=== PATIENT | male | born 1985 | race Caucasian/White ===

== ENCOUNTER 2019-02-19 07:49 | Inpatient (IN) | payer BC ==
[~2019-02-19] VITALS: Ht 193 cm; Wt 97.7 kg
[~2019-02-19 07:49] MED LIST: ALBU2.5V8 IH; AMOX1TAB58 PO; DEXT5TAB27 PO; HYDR1TAB13 PO; LAMO25TA5 PO; LEXAPRO5 MG PO; MENT3.2L MM; PRED20TA PO; PROP60CA8 PO; RABE20TA18 PO; TRAZ-120 PO
[2019-02-19 08:47] VITALS: BP 133/88
[2019-02-19] MEDS ORDERED: ESCITALOPRAM OX20 MG PO (08:48)
[2019-02-19] MEDS ORDERED: ONDA4TAB12 PO (08:48)
[2019-02-19] MEDS ORDERED: LAMO200T2 PO (08:48)
[2019-02-19] MEDS ORDERED: PANT40TA5 PO (08:48)
[2019-02-19] MEDS ORDERED: PROP40TA PO (08:48)
[2019-02-19] MEDS ORDERED: TRAZ-120 PO (08:48)
[2019-02-19] MEDS ORDERED: MULT1TAB52 PO (08:49)
[2019-02-19] MEDS ORDERED: cloNIDine HCL 0.1 MG TABLET PO PRN (09:30)
[2019-02-19] MEDS ORDERED: ONDANSETRON PF 4 MG/2 ML VIAL. IV PRN (09:30)
[2019-02-19] MEDS ORDERED: diphenhydrAMINE 50 MG/ML VIAL IVP PRN (09:30)
[2019-02-19] MEDS ORDERED: HALOPERIDOL LACT 5 MG/ML VIAL. IM PRN (09:30)
[2019-02-19] MEDS ORDERED: IV NORMAL SALINE 1,000ML 1,000 ML IV SCH (09:30)
[2019-02-19 10:13] LABS: ALBUMIN 4.2 g/dL (3.4-5.0); ALBUMIN/GLOBULIN RATIO 1.1 (1.0-1.7); CALCIUM 8.8 mg/dL (8.5-10.1); CREATININE 1.1 mg/dL (0.7-1.3); DIRECT BILIRUBIN 0.4 mg/dL (0.0-0.2); GFR 76.6; TOTAL BILIRUBIN 1.2 mg/dL (0.2-1.0); TOTAL PROTEIN 8.1 g/dL (6.4-8.2)
[2019-02-19] MEDS: MVI, ADULT NO.4 WITH VIT K 10 ML, THIAMINE INJ 100 MG, FOLIC ACID INJ 1 MG in IV NORMAL... IV SCH ×4 (10:13)
[2019-02-19 10:14] LABS: BASO % 1 % (0-3); EOS # 0.1 x10^3/uL (0.0-0.7); EOS % 2 % (0-3); HEMATOCRIT 44.5 % (39.0-53.0); HEMOGLOBIN 15.4 g/dL (13.0-17.5); LYMPH % 19 % (24-48); MEAN CORPUSCULAR HEMOGLOBIN 32 pg (25-35); MEAN CORPUSCULAR HGB CONC 35 g/dL (31-37); MEAN CORPUSCULAR VOLUME 91 fL (79-100); MONO # 0.8 x10^3/uL (0.0-1.1); MONO % 14 % (0-9); NEUT # 3.5 x10^3uL (1.8-7.7); NEUT % 65 % (31-73); PLATELET COUNT 89 x10^3/uL (140-400); RED BLOOD COUNT 4.87 x10^6/uL (4.30-5.70); RED CELL DISTRIBUTION WIDTH 14.2 % (11.5-14.5); WHITE BLOOD COUNT 5.4 x10^3/uL (4.0-11.0)
[2019-02-19] MEDS: THIAMINE IM 200 MG/2 ML VIAL. IM SCH (10:16)
[2019-02-19 11:16] LABS: PLT ESTIMATE DECREASED (ADEQUATE)
[2019-02-19] MEDS: POTASSIUM CHLORIDE 10MEQ 100 ML IV SCH ×4 (11:29→14:27)
[2019-02-19 15:20] VITALS: BP 121/77
--- NOTE | 2019-02-19 16:18 | HP ---
ADMIT DATE: 02/19/2019 HISTORY OF PRESENT ILLNESS: The patient is a 33-year-old male patient, who was admitted directly from his primary care physician's office on account of abnormal lab work and also presentation as he presented yesterday with recurrent for 3 days constant vomiting, abdominal pain. He was investigated in his primary care physician's office and was found to have elevated serum lipase and therefore he was admitted directly to [facility] for further evaluation and treatment. We did repeat his lab work on arrival and his lipase actually higher at 2,288. PAST MEDICAL HISTORY: Significant for scoliosis, recurrent patellar dislocation, familial essential tremors as well as ADHD. PAST SURGICAL HISTORY: Significant for arthroscopic surgery of both knees for recurrent dislocation of the patella and wisdom teeth extraction. ALLERGIES: He has no known drug allergies. MEDICATIONS: He is currently on following medications: He is on propranolol 40 mg twice a day, 200 mg daily, escitalopram oxalate 30 mg once a day, trazodone 50-100 mg at bedtime, ondansetron 8 mg every 8 hours, Protonix 40 mg once a day, and multivitamin 1 tablet once a day. He is also on Adderall for his ADHD. FAMILY HISTORY: He is adopted and lives with his adopted parents. He knows his biological parents. His biological father is alive at age of 53 and mother is alive at age of 53. Does not know anything about their medical problems. SOCIAL HISTORY: He is single, never smoked. Drinks a liter of rum and vodka almost daily. 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 REVIEW OF SYSTEMS: The patient denied any blurring of vision, cataract, glaucoma or macular degeneration. Denied any earache, tinnitus or sensorineural deafness. Denied any nosebleeds, stuffy nose. Denied any sore throat, sore tongue, toothache, hoarseness of voice or difficulty swallowing. Did complain of nausea and vomiting. Denied any diarrhea or constipation. Denied any hematemesis, melena or hematochezia. Denied any dysuria, frequency or hematuria. He denied any chest pain, shortness of breath, orthopnea or paroxysmal nocturnal dyspnea. Denied any cough, phlegm or hemoptysis. Denied any chills, rigors or fever. PHYSICAL EXAMINATION: GENERAL: When I saw him, he was resting slightly propped up in bed, in no apparent respiratory distress. No pallor, jaundice, cyanosis, or thyromegaly. No jugular venous distension. No limb edema. VITAL SIGNS: His heart rate was 85, blood pressure was 133/88, temperature was 97.9, respiratory rate 20, and oxygen saturation was 98%. HEAD, EYES, EARS, NOSE AND THROAT: Showed normocephalic, atraumatic. NECK: Supple. HEART: Showed normal first and second heart sounds with no gallop, rub or murmur. CHEST: Clear to auscultation. No crepitation or rhonchi. ABDOMEN: Distended, soft. Tenderness mostly in the epigastric and right upper quadrant. There is no guarding or rigidity. No organomegaly. All hernial orifices intact. Bowel sounds normal. NEUROLOGIC: He was awake, alert, responding appropriately. Rectal nerves intact. EXTREMITIES: He moves extremities without difficulty. He ambulates without assistance or assistive devices. LABORATORY DATA: Showed a serum sodium 140, potassium 3, chloride 100, bicarbonate 28, anion gap of 12, BUN 9, creatinine 1.1, estimated GFR was 77 mL per minute. His glucose was 88, calcium was 8.8. Total bilirubin was 1.2, AST, ALT elevated. Alkaline phosphatase was normal. His total protein was 8.1, albumin was 4.2. His amylase 143 and lipase was 2,288. His white cell count was 5400, hemoglobin 15.4, hematocrit 44, MCV 91, and platelet count of 89,000 with normal manual differential. ASSESSMENT AND PLAN: This is a 33-year-old male patient, who was seen originally at his primary care physician yesterday with recurrent episode of nausea, vomiting that has been going on for 3 days prior to his clinic visit. His lab work there showed that he has acute pancreatitis and therefore he was admitted directly to our facility where repeat lab work show that he has acute pancreatitis and in fact his serum lipase has quadruple, has also marked thrombocytopenia. His platelet count is down to 89,000. His chemistry showed also he has probably acute alcoholic hepatitis and hypokalemia. We will start him on alcohol withdrawal protocol. We will replenish his potassium. He is on fentanyl 50 mcg IV every 3 hours as needed as well as ondansetron for nausea and vomiting. He was started banana bag. We will start him also on alcohol withdrawal protocol and we will start him on 1000 mL of normal saline with 40 mEq of potassium chloride. He will be n.p.o. from midnight tonight and we will arrange for him to have abdominal ultrasound to evaluate his gallbladder and liver tomorrow. SHANNEN KOVACS MD DR: DIPAK/carlos enrique JOB#: [id number] / [id number]
[2019-02-19 19:35] VITALS: BP 134/117
[2019-02-19] MEDS: POTASSIUM CL 40MEQ IN 0.9%NACL 1,000 ML IV SCH (20:08)
[2019-02-19 20:52] LABS: BACTERIA,URINE FEW /HPF (0-FEW); BILIRUBIN,URINE NEG (NEG); CLARITY,URINE CLOUDY; COLOR,URINE AMBER; GLUCOSE,URINE NEG (NEG); NITRITE,URINE NEG (NEG); SQUAMOUS EPITHELIAL CELL,UR OCC /LPF; UROBILINOGEN,URINE 4 mg/dL (0.2 mg/dL)
[2019-02-19 20:54] LABS: BARBITURATES NEG (NEG); BENZODIAZEPINES NEG (NEG); CANNABINOIDS NEG (NEG); COCAINE NEG (NEG); METHADONE NEG (NEG); OPIATES NEG (NEG); PHENCYCLIDINE NEG (NEG)
[2019-02-19 20:55] LABS: AMPHETAMINE/METHAMPHETAMINE POS (NEG)
[2019-02-19 23:27] VITALS: BP 131/84
[2019-02-20] MEDS: POTASSIUM CL 40MEQ IN 0.9%NACL 1,000 ML IV SCH ×3 (01:45→21:45)
[2019-02-20 07:51] LABS: ALBUMIN 3.3 g/dL (3.4-5.0); CALCIUM 7.9 mg/dL (8.5-10.1); CREATININE 0.9 mg/dL (0.7-1.3); GFR 96.6; POTASSIUM 3.3 mmol/L (3.5-5.1); TOTAL BILIRUBIN 1.5 mg/dL (0.2-1.0); TOTAL PROTEIN 6.6 g/dL (6.4-8.2)
[2019-02-20 08:07] LABS: HEMATOCRIT 38.3 % (39.0-53.0); HEMOGLOBIN 13.1 g/dL (13.0-17.5); RED BLOOD COUNT 4.13 x10^6/uL (4.30-5.70); RED CELL DISTRIBUTION WIDTH 14.2 % (11.5-14.5); WHITE BLOOD COUNT 3.7 x10^3/uL (4.0-11.0)
[2019-02-20] MEDS: THIAMINE IM 200 MG/2 ML VIAL. IM SCH (08:19)
[2019-02-20] MEDS: MVI, ADULT NO.4 WITH VIT K 10 ML, THIAMINE INJ 100 MG, FOLIC ACID INJ 1 MG in IV NORMAL... IV SCH ×4 (08:38)
[2019-02-20] MEDS: POTASSIUM CHLORIDE 20 MEQ TABLET.ER. PO SCH ×2 (09:00→20:44)
[2019-02-20 11:40] VITALS: BP 129/83
[2019-02-20] MEDS ORDERED: IOHEXOL 300 MG/ML 75 ML VIAL. IV ONE (15:00)
[2019-02-20] MEDS ORDERED: MAGNESIUM SULFATE 2GM 50 ML IV ONE (15:00)
[2019-02-20 15:17] VITALS: BP 147/93
--- NOTE | 2019-02-20 16:13 | RAD ---
CT ABD PELV W/ IV CONTRST ONLY Indication: ACUTE PANCREATITUS, ABNORMAL LFT'S, ABDOMINAL PAIN WITH VOMITING. 75MLS OMNI 300 IV CONTRAST Exposure: One or more of the following individualized dose reduction techniques were utilized for this examination: 1. Automated exposure control 2. Adjustment of the mA and/or kV according to patient size 3. Use of iterative reconstruction technique. Technique: Intravenous contrast was given. No oral contrast per request. No prior study for comparison. Mild atelectasis in the lung bases. Liver is diffusely hypodense compatible with fatty infiltration. Liver is mildly enlarged at about 19 cm cephalocaudal. Spleen not enlarged. No evidence of peripancreatic inflammatory type changes, pancreas appears unremarkable. No adrenal mass. Kidneys appear unremarkable. No calcified gallstone. Aorta is nonaneurysmal. No significant lymph node enlargement. No evidence of significant small bowel distention. The appendix appears normal. No evidence of acute colitis. No evidence of ascites. No evidence of pneumoperitoneum. No evidence of pelvic mass. Urinary bladder demonstrates no significant wall thickening. Left convexity lumbar scoliosis. There is degenerative spondylosis. No aggressive bone destruction. IMPRESSION: 1. Hepatic steatosis with mild hepatomegaly. 2. No CT evidence of peripancreatic fluid or inflammatory change. Electronically signed by: Venu Peacock MD (02/20/2019 4:10 PM) [id number]
[2019-02-20 19:30] VITALS: BP 113/72
--- NOTE | 2019-02-20 20:59 | PN ---
DATE: 02/20/2019 SUBJECTIVE: The patient is resting slightly propped up in bed, in no apparent distress. He is awake and alert. Denied any nausea or vomiting. Denied any abdominal pain. The nursing staff stated that he had not show any evidence of delirium or any alcohol withdrawal symptoms. His liver enzymes are trending down as well as his serum lipase is down to 2198. However, his serum triglycerides are normal. PHYSICAL EXAMINATION: GENERAL: When I examined him this afternoon, he looked well and was clearly in no apparent respiratory distress. No pallor, jaundice, cyanosis, or thyromegaly. No jugular venous distension. No lower limb edema. VITAL SIGNS: His heart rate was 78, blood pressure was 131/84, temperature 98.2, respiratory rate was 18 and oxygen saturation was 99%. HEAD, EYES, EARS, NOSE AND THROAT: Normocephalic, atraumatic. NECK: Supple. HEART: Showed normal first and second sounds. No gallop, rub or murmur. CHEST: Clear to auscultation. No crepitation or rhonchi. ABDOMEN: Distended, soft with mild tenderness in the epigastric area. No guarding or rigidity. No organomegaly. All hernial orifices intact. Bowel sounds normal. NEUROLOGIC: He was awake, alert, responding appropriately. All cranial nerves intact. He moves extremities without difficulty. His intake over the last 24 hours was 5231 and output was 800. LABORATORY DATA: This morning showed a serum sodium 140, potassium 3.3, bicarbonate 27, anion gap of 10, BUN 9, creatinine 0.9, estimated GFR was 96 mL per minute. His glucose was 75, calcium was 7.9. Total bilirubin 1.5. AST and ALT are elevated. Alkaline phosphatase normal. Total protein was 6.6, albumin 3.3. Serum triglycerides were 71, total cholesterol 170, LDL was 108, VLDL was 14, and HDL was 43 and the ratio was 3. Serum lipase this morning was 2196. His urinalysis was essentially unremarkable and toxic screen was positive for amphetamine, methamphetamine as well as ethyl alcohol. ASSESSMENT: 1. Acute alcohol-induced pancreatitis. 2. Acute alcohol hepatitis. 3. Hypokalemia, slightly better. 4. The patient also has thrombocytopenia. 5. Polysubstance abuse including amphetamine, methamphetamine and alcohol. PLAN: To continue with alcohol withdrawal protocol. Continue with the clear liquid diet. I have arranged for him to have a CT scan of the abdomen and pelvis with contrast and if there is no evidence of any gallbladder disease, we will advance diet as tolerated and I will repeat all his labs tomorrow. SHANNEN KOVACS MD DR: DIPAK/carlos enrique JOB#: [id number] / [id number]
[2019-02-20 23:16] VITALS: BP 120/80
[2019-02-21] MEDS: POTASSIUM CL 40MEQ IN 0.9%NACL 1,000 ML IV SCH ×2 (01:41→20:17)
[2019-02-21 06:10] VITALS: BP 148/95
[2019-02-21 07:43] LABS: ALBUMIN 3.2 g/dL (3.4-5.0); CALCIUM 8.2 mg/dL (8.5-10.1); CREATININE 0.8 mg/dL (0.7-1.3); GFR 110.7; MAGNESIUM 2.1 mg/dL (1.8-2.4); POTASSIUM 3.9 mmol/L (3.5-5.1); TOTAL PROTEIN 6.4 g/dL (6.4-8.2)
[2019-02-21] MEDS: POTASSIUM CHLORIDE 20 MEQ TABLET.ER. PO SCH ×2 (08:09→20:17)
[2019-02-21] MEDS: THIAMINE IM 200 MG/2 ML VIAL. IM SCH (08:09)
[2019-02-21] MEDS: MVI, ADULT NO.4 WITH VIT K 10 ML, THIAMINE INJ 100 MG, FOLIC ACID INJ 1 MG in IV NORMAL... IV SCH ×4 (09:10)
[2019-02-21 11:06] VITALS: BP 129/82
[2019-02-21 15:19] VITALS: BP 138/90
[2019-02-21 19:30] VITALS: BP 137/94
--- NOTE | 2019-02-21 21:03 | PN ---
DATE: 02/21/2019 SUBJECTIVE: The patient is resting, slightly propped up in bed, in no apparent distress. Awake, alert. On questioning him, he denied any complaint, in particular denied any nausea, vomiting. Denied any abdominal pain. His lab work in fact showed that his lipase is actually higher today at 2480. His liver enzymes are trending down. His CT scan showed no evidence of any pancreatitis. In fact, the radiologist said that there is no evidence of any peripancreatic inflammatory type changes. Pancreas appears unremarkable. The liver is diffusely hypodense compatible with fatty infiltration, the liver is mildly enlarged at about 19. There are no calcified gallstones, aorta is nonaneurysmal. No significant lymph node enlargement. No evidence of any significant small bowel distention. The appendix appears normal. No evidence of acute colitis, no evidence of ascites or pneumoperitoneum, no evidence of pelvic mass. Urinary bladder demonstrates no significant wall thickening and my plan is to advance his diet. I will discuss this finding with the second facing baster tomorrow and decide on further management accordingly. PHYSICAL EXAMINATION: GENERAL: When I saw him this afternoon, he looked well and was clearly in no apparent respiratory distress. No pallor, jaundice, cyanosis, or thyromegaly. No jugular venous distension. No lower limb edema. VITAL SIGNS: His heart rate was 80, blood pressure was 138/90, temperature was 98.4, respiratory rate was 20, and oxygen saturation was 97%. The rest of clinical examination is unremarkable. His intake over the last 24 hour is 5231, output was 800. LABORATORY DATA: Showed a serum sodium 142, potassium 3.9, chloride 108, bicarbonate 26, anion gap of 8, BUN 7, creatinine 0.8, estimated GFR was 110 mL per minute. His glucose was 88, calcium was 8.2, magnesium was 2.1. Total bilirubin and alkaline phosphatase normal. AST, ALT slightly elevated, but trending down. Total protein was 6.4, albumin 3.2. Serum lipase was 2480. ASSESSMENT: Elevated serum lipase without any clear-cut evidence of pancreatitis, peripancreatic inflammatory changes. The patient is heavy alcohol drinker. He has hepatic steatosis with enlarged liver. PLAN: My plan is to advance his diet as tolerated and discuss the finding with the second facing baster tomorrow. SHANNEN KOVACS MD DR: [place]ka JOB#: [id number] / [id number]
[2019-02-21 23:15] VITALS: BP 146/99
[2019-02-22] MEDS: POTASSIUM CL 40MEQ IN 0.9%NACL 1,000 ML IV SCH ×3 (04:37→20:59)
[2019-02-22 06:04] VITALS: BP 120/79
[2019-02-22] MEDS: THIAMINE IM 200 MG/2 ML VIAL. IM SCH (08:26)
[2019-02-22] MEDS: POTASSIUM CHLORIDE 20 MEQ TABLET.ER. PO SCH ×2 (08:26→20:23)
[2019-02-22] MEDS: MVI, ADULT NO.4 WITH VIT K 10 ML, THIAMINE INJ 100 MG, FOLIC ACID INJ 1 MG in IV NORMAL... IV SCH ×4 (09:00)
[2019-02-22 10:59] VITALS: BP 148/90
[2019-02-22 15:40] VITALS: BP 129/77
[2019-02-22 16:04] LABS: ALBUMIN/GLOBULIN RATIO 1.1 (1.0-1.7); CALCIUM 9.4 mg/dL (8.5-10.1); CREATININE 0.9 mg/dL (0.7-1.3); GFR 96.6; POTASSIUM 4.6 mmol/L (3.5-5.1); TOTAL BILIRUBIN 0.7 mg/dL (0.2-1.0); TOTAL PROTEIN 7.6 g/dL (6.4-8.2)
[2019-02-22 18:48] VITALS: BP 128/83
--- NOTE | 2019-02-23 01:52 | PN ---
DATE: 02/22/2019 SUBJECTIVE: The patient is sitting up comfortably in his bed, in no apparent distress. On questioning him, he denied any complaint, in particular he denied any nausea or vomiting. Denied abdominal pain. He is tolerating his diet without any difficulty; however, his serum lipase is going up and has risen today 3422 from 2480 yesterday. He has no leukocytosis and his CT scan of the abdomen showed that the pancreas is unremarkable with no peripancreatic inflammation. My plan is to observe him again overnight and tomorrow I would consult Dr. Duque and if he recommended the patient can be discharged safely, he will be discharged. OBJECTIVE: GENERAL: When I examined him this afternoon, he looked well and was clearly in no apparent respiratory distress. No pallor, jaundice, cyanosis, or thyromegaly. No jugular venous distention. No limb edema. VITAL SIGNS: His heart rate was 76, blood pressure was 129/77, temperature was 97.7, respiratory rate 20, and oxygen saturation was 96% and the rest of the clinical examination was unremarkable. LABORATORY DATA: His white cell count was 3700, hemoglobin 13, hematocrit 38, MCV 93, and platelet count of 63,000. His chemistry showed a serum sodium 139, potassium 4.6, chloride 105, bicarbonate 24, anion gap of 10, BUN 5, creatinine was 0.9, estimated GFR was 97 mL per minute. His glucose was 91, calcium was 9.4. Total bilirubin and alkaline phosphatase normal. AST, ALT are elevated. Total protein was 7.6, albumin 4 and his lipase was high at 3422. ASSESSMENT: Elevated serum lipase without any clear evidence of pancreatitis or peripancreatic inflammatory changes. The patient is a heavy alcohol drinker. He has hepatic steatosis with enlarged liver. PLAN: My plan is to continue with a regular diet for today and tomorrow morning I would discuss the finding with the certified orthotic fitter and if this is the case of elevated lipase without any underlying pathology, he can be discharged home. SHANNEN KOVACS MD DR: DIPAK/carlos enrique JOB#: [id number] / [id number]
[2019-02-23 05:11] VITALS: BP 121/82
[2019-02-23] MEDS ORDERED: traZODone 50 MG TABLET. PO PRN (06:15)
[2019-02-23 06:34] LABS: ALBUMIN 3.9 g/dL (3.4-5.0); CALCIUM 9.5 mg/dL (8.5-10.1); CREATININE 0.9 mg/dL (0.7-1.3); GFR 96.6; POTASSIUM 4.3 mmol/L (3.5-5.1); TOTAL BILIRUBIN 0.8 mg/dL (0.2-1.0); TOTAL PROTEIN 7.7 g/dL (6.4-8.2)
[2019-02-23] MEDS: MVI, ADULT NO.4 WITH VIT K 10 ML, THIAMINE INJ 100 MG, FOLIC ACID INJ 1 MG in IV NORMAL... IV SCH ×4 (07:29)
[2019-02-23] MEDS ORDERED: PANTOPRAZOLE 40 MG TABLET. PO SCH (07:30)
[2019-02-23] MEDS: POTASSIUM CHLORIDE 20 MEQ TABLET.ER. PO SCH (08:54)
[2019-02-23] MEDS ORDERED: THIAMINE 100 MG TABLET. PO SCH (09:00)
[2019-02-23] MEDS ORDERED: PROPRANOLOL 20 MG TABLET. PO SCH (09:00)
[2019-02-23] MEDS ORDERED: lamoTRIgine 100 MG TABLET. PO SCH (09:00)
[2019-02-23] MEDS ORDERED: CITALOPRAM 20 MG TABLET. PO SCH (09:00)
[2019-02-23 10:36] VITALS: BP 122/79
--- NOTE | 2019-02-23 12:22 | DS ---
DATE OF DISCHARGE: 02/23/2019 HOSPITAL COURSE: The patient is a 33-year-old male patient, who was admitted initially with a direct admission from his primary care physician's office on account of abnormal lab work and also he presented with recurrent bouts of nausea, vomiting, and abdominal pain. In the office, he was found to have elevated lipase; therefore, was admitted to [facility]. We did initially kept him n.p.o., start him on IV fluid, IV pain medication, antiemetic. He was initially started on a clear liquid diet and then advance as tolerated. He has no pain, no nausea, no vomiting; however, his serum lipase continued to rise and we did a CT scan of the abdomen, which showed no evidence of any peripancreatic inflammation or evidence of pancreatitis. I discussed the presentation with Dr. Duque's nurse practitioner, who takes me stated that Dr. Duque recommended the patient can safely be discharged as the patient is asymptomatic. He is tolerating his diet without any problem, the only advice is for him to quit drinking alcohol and I explained that in detail and apparently his parents are working for an outpatient detoxification program. PHYSICAL EXAMINATION: GENERAL: When I saw him this morning, he looked well and was clearly in no apparent respiratory distress. No pallor, jaundice, cyanosis, or thyromegaly. No jugular venous distension. No limb edema. VITAL SIGNS: His heart rate was 80, blood pressure was 122/79, temperature was 97.9, respiratory rate was 20, and oxygen saturation was 96%. HEAD, EYES, EARS, NOSE AND THROAT: Showed he is normocephalic, atraumatic. NECK: Supple. HEART: Showed normal first and second heart sounds. No gallop, rub or murmur. CHEST: Clear to auscultation. No crepitation or rhonchi. ABDOMEN: Distended, soft, nontender. No guarding or rigidity. No organomegaly. All hernial orifices intact. Bowel sounds normal. NEUROLOGIC: He was awake, alert, responding appropriately. All cranial nerves intact. EXTREMITIES: He moves extremities without difficulty, ambulates without assistance or assistive devices. LABORATORY DATA: Showed a white cell count of 3700, hemoglobin 13, hematocrit 38, MCV 93, and platelet count of 63,000. His chemistry showed a serum sodium 139, potassium 4.3, chloride 103, bicarbonate 25, anion gap of 11, BUN 4, creatinine 0.9, estimated GFR was 96 mL per minute. His glucose was 84, calcium was 9.5. Total bilirubin and alkaline phosphatase normal. AST, ALT are elevated, but trending down. Total protein was 7.7, albumin 3.9. Serum lipase was 2578. His CT scan of the abdomen and pelvis showed that the liver is diffusely hypodense compatible with fatty infiltration. The liver is mildly enlarged at about 19 cm cephalocaudal. Spleen is not enlarged. No evidence of peripancreatic inflammatory type changes. Pancreas appears unremarkable. No adrenal mass. Kidney appears unremarkable. There are no calcified gallstones and no significant lymph node enlargement. DISCHARGE MEDICATIONS: He was discharged home to continue on following medications: Escitalopram oxalate 20 mg, takes one-half tablet daily, lamotrigine 200 mg daily, multivitamin 1 tablet once a day, ondansetron 8 mg every 8 hours, Protonix 40 mg daily, propranolol 40 mg twice a day and trazodone 50-100 mg at bedtime for insomnia. FINAL DISCHARGE DIAGNOSES: 1. Acute alcohol-induced pancreatitis. 2. Alcohol use disorder. 3. Family has essential tremors. 4. Attention deficit hyperactivity syndrome. 5. Recurrent patellar dislocation and scoliosis. SHANNEN KOVACS MD DR: DIPAK/carlos enrique JOB#: [id number] / [id number]
== END 2019-02-23 12:11 | disposition home or self-care (01) | DRG 432 ==
LOC: 1 SOUTH 08:29
PROVIDERS: ADMIT Internal Medicine; ATTEND Internal Medicine
DX: K70.10 Alcoholic hepatitis without ascites (principal); K85.20 Alcohol induced acute pancreatitis without necrosis or infection; E87.6 Hypokalemia; M41.9 Scoliosis, unspecified; D69.6 Thrombocytopenia, unspecified; F90.9 Attention-deficit hyperactivity disorder, unspecified type; K76.0 Fatty (change of) liver, not elsewhere classified; M22.00 Recurrent dislocation of patella, unspecified knee
CPT/HCPCS: 36415; 74177; 80053; 80061; 80307; 81001; 82150; 82248; 83690; 83735; 85025; 85027; J2060; J3475; J3480; Q9967; J7030

== ENCOUNTER 2021-10-09 13:11 | Emergency (ER) | payer BC ==
[~2021-10-09] VITALS: Ht 193 cm; Wt 86.3 kg
[~2021-10-09 13:11] MED LIST changes: +ESCITALOPRAM OX20 MG PO; +LAMO200T6 PO; +MULT-445 PO; +ONDA4TAB12 PO; +PANT40TA6 PO; +PROP40TA PO; +PROP60CA36 PO; -PROP60CA8 PO
[2021-10-09] MEDS ORDERED: IV NORMAL SALINE 1,000ML 1,000 ML IV ONE ×2 (16:15→17:45)
[2021-10-09] MEDS ORDERED: ONDANSETRON PF 4 MG/2 ML VIAL. IVP ONE (16:15)
--- NOTE | 2021-10-09 16:18 | EKG ---
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
[2021-10-09 17:03] LABS: BASO % 0 % (0-3); EOS % 0 % (0-3); HEMATOCRIT 48.6 % (39.0-53.0); HEMOGLOBIN 17.4 g/dL (13.0-17.5); LYMPH # 0.7 x10^3/uL (1.0-4.8); LYMPH % 9 % (24-48); MEAN CORPUSCULAR HEMOGLOBIN 34 pg (25-35); MEAN CORPUSCULAR HGB CONC 36 g/dL (31-37); MEAN CORPUSCULAR VOLUME 95 fL (79-100); MONO # 0.7 x10^3/uL (0.0-1.1); MONO % 8 % (0-9); NEUT # 6.5 x10^3uL (1.8-7.7); NEUT % 83 % (31-73); PLATELET COUNT 105 x10^3/uL (140-400); RED BLOOD COUNT 5.12 x10^6/uL (4.30-5.70); RED CELL DISTRIBUTION WIDTH 13.2 % (11.5-14.5); WHITE BLOOD COUNT 7.9 x10^3/uL (4.0-11.0)
[2021-10-09 17:08] LABS: BARBITURATES NEG (NEG); BENZODIAZEPINES NEG (NEG); CANNABINOIDS NEG (NEG); COCAINE NEG (NEG); METHADONE NEG (NEG); OPIATES NEG (NEG); PHENCYCLIDINE NEG (NEG)
[2021-10-09 17:11] LABS: AMPHETAMINE/METHAMPHETAMINE NEG (NEG)
[2021-10-09 17:14] LABS: ALBUMIN/GLOBULIN RATIO 1.5 (1.0-1.7); CALCIUM 9.3 mg/dL (8.5-10.1); CREATININE 1.3 mg/dL (0.7-1.3); GFR 62.1; TOTAL BILIRUBIN 1.7 mg/dL (0.2-1.0); TOTAL PROTEIN 8.4 g/dL (6.4-8.2)
--- NOTE | 2021-10-09 17:18 | PHYS DOC ---
Past History Past Medical History: Alcoholism, GERD Additional Past Medical Histor: autism spectrum, mood disorder (RYAN SAUCEDO) Past Surgical History: No Surgical History (RYAN SAUCEDO) Smoking: Non-smoker Alcohol Use: Heavy Drug Use: None (RYAN SAUCEDO) General Adult EDM: Chief Complaint: WITHDRAWAL HPI: HPI: Patient is a 36 year old male with history of autism who presents with alcohol withdrawal. Patient reports that his last alcoholic beverage was 3 hours prior to arrival. Currently, his associated symptoms are headache, palpitations, nausea. He states around 6 hours status post alcoholic intake, he starts to have hallucinations. His father, who has power of civil litigation attorney and medical decision making, is at bedside with him. He has been admitted to hospitals for alcohol withdrawal and detox previously. At this point, patient has failed outpatient rehabilitation. He is not interested in inpatient rehab at this time. Patient denies vision changes, auditory hallucinations, visual hallucinations, tactile hallucinations, seizure activity, vomiting. He denies SI/HI. (RYAN SAUCEDO) Review of Systems: Review of Systems: 12 systems reviewed. ROS negative except as mentioned in HPI. (RYAN SAUCEDO) Current Medications: Current Meds: Current Medications Medications (Trade) Dose Ordered Sig/Daniel Start Time Stop Time Status Last Admin Dose Admin Lorazepam (Ativan Inj) 1 mg PRN Q4HRS ONCE 10/09/21 16:00 10/09/21 16:01 DC 10/09/21 16:20 1 MG Ondansetron HCl (Zofran) 4 mg 1X ONCE 10/09/21 16:15 10/09/21 16:16 DC 10/09/21 16:18 4 MG Sodium Chloride 1,000 ml @ 1,000 mls/hr 1X ONCE 10/09/21 16:15 10/09/21 17:14 10/09/21 16:19 1,000 MLS/HR (RYAN SAUCEDO) Allergies: Allergies: Allergies Coded Allergies Type Severity Reaction Last Updated Verified No Known Drug Allergies 12/22/15 No (RYAN SAUCEDO) Physical Exam: PE: Constitutional: Well developed, well nourished, disheveled, no acute distress, non-toxic appearance. HENT: Normocephalic, atraumatic, bilateral external ears normal, oropharynx moist, no oral exudates, nose without obvious deformity or discharge. Eyes: PERRLA, EOMI, conjunctiva normal, no discharge. Cardiovascular: Elevated heart rate with regular rhythm, no murmur. Lungs & Thorax: Bilateral breath sounds clear to auscultation. Abdomen: Bowel sounds normal, soft, no tenderness, no masses, no pulsatile masses. Skin: Diaphoretic. Otherwise warm, no erythema, no rash. Extremities: No tenderness, no cyanosis, no clubbing, ROM intact, no edema. Neurologic: Alert and oriented x4, no focal deficits noted. (RYAN SAUCEDO) Current Patient Data: Labs: Laboratory Tests Test 10/09/21 16:11 White Blood Count 7.9 x10^3/uL (4.0-11.0) Red Blood Count 5.12 x10^6/uL (4.30-5.70) Hemoglobin 17.4 g/dL (13.0-17.5) Hematocrit 48.6 % (39.0-53.0) Mean Corpuscular Volume 95 fL (79-100) Mean Corpuscular Hemoglobin 34 pg (25-35) Mean Corpuscular Hemoglobin Concent 36 g/dL (31-37) Red Cell Distribution Width 13.2 % (11.5-14.5) Platelet Count 105 x10^3/uL (140-400) L Neutrophils (%) (Auto) 83 % (31-73) H Lymphocytes (%) (Auto) 9 % (24-48) L Monocytes (%) (Auto) 8 % (0-9) Eosinophils (%) (Auto) 0 % (0-3) Basophils (%) (Auto) 0 % (0-3) Neutrophils # (Auto) 6.5 x10^3uL (1.8-7.7) Lymphocytes # (Auto) 0.7 x10^3/uL (1.0-4.8) L Monocytes # (Auto) 0.7 x10^3/uL (0.0-1.1) Eosinophils # (Auto) 0.0 x10^3/uL (0.0-0.7) Basophils # (Auto) 0.0 x10^3/uL (0.0-0.2) Vital Signs: VS - Last 72 Hours, by Label Date Time Temp Pulse Resp B/P (MAP) Pulse Ox O2 Delivery O2 Flow Rate FiO2 10/09/21 20:00 132 20 152/98 (116) 98 10/09/21 19:21 98.0 146 18 131/100 (110) 99 Room Air 10/09/21 16:51 140 22 131/108 (116) 98 (RYAN SAUCEDO) EKG: EKG: EKG Interpreted by Dr. Poe at 1547: Sinus tachycardia 145 bpm with regular rhythm, no ectopic beats. No concerning ST-T wave changes. Regular QR interval. (RYAN SAUCEDO) Heart Score: C/O Chest Pain: No (RYAN SAUCEDO) Course & Med Decision Making: Course & Med Decision Making Pertinent Labs and Imaging studies reviewed. (See chart for details) At this time, patient is diaphoretic and nauseated, but denies other symptoms. Will administer Zofran and IV fluids. Work-up will include blood alcohol level, UDS, urinalysis, labs. Patient has critical potassium level of 2.9. While the patient is nauseated, he has been administered Zofran. Will attempt p.o. potassium replacement. Patient vomited after taking p.o. potassium. His father reports he has severe acid reflux for which he takes Protonix at home. Patient has not had any of his home meds today. Patient had a consult with psychiatric assessment team via Zoom. Has been decided that patient will follow up with [facility] outpatient rehabilitation. Both the patient and his father are agreeable to discharge and safety plan. Patient nausea and hypokalemia will be addressed here in the department. Otherwise, he will be discharged home with prescription for Zofran ODT and return precautions. Patient and his dad at bedside understand and are agreeable to discharge plan. (RYAN SAUCEDO) Course & Med Decision Making Did not see or evaluate patient. Did not discuss patient with POUNCING MACHINE OPERATOR. Agree with POUNCING MACHINE OPERATOR's work-up and disposition per note. (GABRIELLA THOMAS MD) Dragon Disclaimer: Dragon Disclaimer: This electronic medical record was generated, in whole or in part, using a voice recognition dictation system. (RYAN SAUCEDO) Departure Departure: Impression: Primary Impression: Alcohol use disorder Additional Impression: Encounter for assessment of severity of alcohol withdrawal Disposition: HOME / SELF CARE / HOMELESS Condition: STABLE Referrals: BRANDT GUERRERO (PCP) Patient Instructions: Alcohol Withdrawal, [id number], Anxiety and Panic Attacks, [id number] Additional Instructions: As discussed, you should follow-up with [facility] outpatient alcohol rehabilitation program. In the emergency department today, we addressed any medical issues as a result of your alcohol dependence and withdrawal. Please return to the emergency department for worsening symptoms or onset of new symptoms, including hallucinations or seizure-like activity. [facility] contact information provided on separate printout. Scripts Potassium Bicarbonate/Cit Ac (EFFER-K 25 MEQ TABLET EFF) 25 Meq Tablet.eff 25 MEQ PO DAILY for hypokalemia, #3 TAB Prov: RYAN SAUCEDO 10/09/21 Ondansetron (ONDANSETRON ODT) 4 Mg Tab.rapdis 1 TAB PO PRN Q6-8HRS for nausea, #30 TAB Prov: RYAN SAUCEDO 10/09/21 RYAN SAUCEDO Oct 09, 2021 17:18 GABRIELLA THOMAS MD Oct 09, 2021 21:31
[2021-10-09 17:20] LABS: POTASSIUM 2.9 mmol/L (3.5-5.1)
[2021-10-09] MEDS ORDERED: POTASSIUM CHLORIDE 20 MEQ TABLET.ER. PO ONE (17:30)
[2021-10-09] MEDS ORDERED: METOCLOPRAMIDE HCL 10 MG/2 ML VIAL. IVP ONE (18:15)
[2021-10-09] MEDS ORDERED: PANTOPRAZOLE IV 40 MG VIAL. IVP ONE (18:15)
[2021-10-09] MEDS ORDERED: ONDA4TAB12 PO (19:07)
[2021-10-09] MEDS ORDERED: diazePAM 5 MG TABLET. PO ONE ×2 (19:15→19:30)
[2021-10-09] MEDS ORDERED: POTA25TA9 PO (19:20)
[2021-10-09] MEDS ORDERED: POTASSIUM BICARB 20 MEQ EFFERVESCENT TABLET. PO ONE (19:30)
[2021-10-09] MEDS ORDERED: clonazePAM 1 MG TABLET PO ONE (19:30)
[2021-10-09 19:56] LABS: BILIRUBIN,URINE LARGE (NEG); CLARITY,URINE HAZY; COLOR,URINE AMBER; GLUCOSE,URINE 100 mg/dL (NEG); NITRITE,URINE POS (NEG); UROBILINOGEN,URINE >=8.0 mg/dL (0.2 mg/dL)
[2021-10-09 19:57] LABS: BACTERIA,URINE FEW /HPF (0-FEW); RBC,URINE 20-40 /HPF (0-2); SQUAMOUS EPITHELIAL CELL,UR OCC /LPF; WBC,URINE >40 /HPF (0-4)
[2021-10-09 20:00] VITALS: BP 152/98
== END 2021-10-09 20:18 | disposition home or self-care (01) ==
LOC: ER 13:11
DX: F10.239 Alcohol dependence with withdrawal, unspecified (principal); K21.9 Gastro-esophageal reflux disease without esophagitis; Y90.6 Blood alcohol level of 120-199 mg/100 ml
CPT/HCPCS: 36415; 80053; 80307; 81001; 83735; 84484; 85025; 87086; 93005; 96361; 96374; 96375; 99284; C9113; G0480; J2060; J2405; J2765; J7030

== ENCOUNTER → 2022-03-05 | Outpatient (CLI) | payer BC ==
[~2022-03-05] MED LIST changes: +POTA25TA9 PO
[2022-03-05 14:02] LABS: CALCIUM 8.9 mg/dL (8.5-10.1); CREATININE 1.2 mg/dL (0.7-1.3); GFR 68.1
[2022-03-05 14:13] LABS: POTASSIUM 2.6 mmol/L (3.5-5.1)
== END ==
LOC: LAB 13:21
PROVIDERS: ATTEND Physician Assistant
DX: I42.9 Cardiomyopathy, unspecified (principal)
CPT/HCPCS: 36415; 80048

== ENCOUNTER → 2022-03-13 | Outpatient (CLI) | payer BC ==
[2022-03-13 14:50] LABS: CALCIUM 8.1 mg/dL (8.5-10.1); CREATININE 0.8 mg/dL (0.7-1.3); GFR 108.8; POTASSIUM 3.6 mmol/L (3.5-5.1)
== END ==
LOC: LAB 13:37
PROVIDERS: ATTEND Dermatology
DX: I42.9 Cardiomyopathy, unspecified (principal); I77.810 Thoracic aortic ectasia
CPT/HCPCS: 36415; 80048